=== PATIENT | male | born 1970 | race Caucasian/White ===

== ENCOUNTER 2017-12-11 13:27 | Emergency (ER) | payer OTHER ==
[~2017-12-11] VITALS: Ht 195.6 cm; Wt 81.6 kg
== END 2017-12-11 20:02 | disposition home or self-care (01) ==
LOC: ER 13:27
DX: M79.605 Pain in left leg (principal); M79.604 Pain in right leg; M79.632 Pain in left forearm; M79.645 Pain in left finger(s); I73.9 Peripheral vascular disease, unspecified